=== PATIENT | male | born 1980 | race Caucasian/White ===

== ENCOUNTER 2016-10-25 16:26 | Emergency (ER) | payer MEDICAID ==
[~2016-10-25] VITALS: Ht 185.4 cm; Wt 108.9 kg
[2016-10-25 16:42] VITALS: BP 117/75
== END 2016-10-25 18:33 | disposition home or self-care (01) ==
LOC: EDUNIT# 16:26 → ER 16:31
DX: F41.9 Anxiety disorder, unspecified (principal); F17.210 Nicotine dependence, cigarettes, uncomplicated; F12.10 Cannabis abuse, uncomplicated

== ENCOUNTER 2017-07-29 11:51 | Emergency (ER) | payer MEDICAID ==
[~2017-07-29] VITALS: Ht 188 cm; Wt 104.3 kg
[2017-07-29 13:03] VITALS: BP 134/78
== END 2017-07-29 14:24 | disposition home or self-care (01) ==
LOC: ER 11:51
DX: F41.9 Anxiety disorder, unspecified (principal); F17.210 Nicotine dependence, cigarettes, uncomplicated; Z76.0 Encounter for issue of repeat prescription
CPT/HCPCS: 93005

== ENCOUNTER 2017-09-18 17:00 | Emergency (ER) | payer MEDICAID ==
[~2017-09-18] VITALS: Ht 188 cm; Wt 104.3 kg
[2017-09-18] MEDS ORDERED: ACETAMINOPHEN 500 MG TAB PO ONE ×2 (17:57→18:15)
[2017-09-18 19:10] LABS: Basophils # (auto) 0.1 uL; Basophils % (auto) 0.3 % (0.0-2.0); Eosinophils # (auto) 0 uL; Eosinophils % (auto) 0.1 % (0.0-7.0); Hemoglobin 15.8 g/dL (13.5-17.5); Lymphocytes # (auto) 1.3 uL; Lymphocytes % (auto) 8.4 % (10.0-50.0); Mean Corpuscular Hgb Conc. 34.4 g/dL (32.0-36.0); Mean Corpuscular Volume 84.5 fL (80.0-100.0); Monocytes # (auto) 1.9 uL; Monocytes % (auto) 12.3 % (0.0-12.0); Neutrophils # (auto) 12.1 uL; Neutrophils % (auto) 78.9 % (37.0-80.0); Nucleated Red Blood Cells % 0.1 %; Platelet Count (auto) 210 10^3/uL (140-450); Red Blood Cells 5.44 10^6/uL (4.5-5.90); Red Cell Distribution Width 13.3 % (11.8-14.3); White Blood Cell 15.3 10^3/uL (4.4-10.8)
[2017-09-18 20:06] VITALS: BP 138/81
[2017-09-18 20:09] LABS: BUN/Creatinine Ratio 10.8; Potassium 3.7 mmol/L (3.5-5.1)
[2017-09-18 20:10] LABS: Albumin 3.5 g/dL (3.4-5.0); Bilirubin, Total 0.8 mg/dL (0.2-1.0); Calcium 8.7 mg/dL (8.5-10.1); Total Protein 8.2 g/dL (6.4-8.2)
== END 2017-09-18 20:15 | disposition left against medical advice (07) ==
LOC: ER 17:00
DX: R50.9 Fever, unspecified (principal); M54.2 Cervicalgia; Z53.21 Procedure and treatment not carried out due to patient leaving prior to being seen by health care provider
CPT/HCPCS: 36415; 80053; 85025; 93005